=== PATIENT | female | born 1990 | race African-American/Black ===

== ENCOUNTER 2017-07-28 04:39 | Emergency (ER) | payer OTHER ==
[~2017-07-28] VITALS: Ht 160 cm; Wt 82.0 kg
[~2017-07-28 04:39] MED LIST: BACT800T5 PO; CEPH500C3 PO; ETON1IMP I-DERMAL; IBUP800T23 PO
[2017-07-28 04:47] VITALS: BP 122/67; PULSE 88; RESP 20; TEMP 98.6; O2SAT 98
[2017-07-28 05:02] VITALS: BP 122/67; PULSE 88; RESP 20; TEMP 98.6; O2SAT 98
[2017-07-28] MEDS ORDERED: IBUP-232 PO (05:38)
[2017-07-28] MEDS ORDERED: IBUPROFEN 600 MG TAB PO ONE (05:45)
--- NOTE | 2017-07-28 05:51 | PD ---
HPI Chief Complaint: Injury Time Seen by Provider: 04:56 Travel History International Travel<30 days: No Contact w/Intl Traveler<30days: No Traveled to known affect area: No History of Present Illness HPI The patient is a 26-year-old female that at approximately 9 PM yesterday she suffered a lateral patellar subluxation. She put it back into place but has persistent pain since. This is her first episode of patellar subluxation. She denies any other injury. She states there is no possibility of . [facility] Past Medical History Hypertension: Yes Tetanus Vaccination: Unknown Influenza Vaccination: No ?: Not LMP: 3 WEEKS AGO Past Surgical History Surgical History: No Previous Surgery Social History Alcohol Use: Yes (OCCASIONAL) Tobacco Use: No Substance Use: No Allergies-Medications (Allergen,Severity, Reaction): Coded Allergies: No Known Allergies (Unverified Adverse Reaction, Unknown, 07/28/17) Reported Meds & Prescriptions Reported Meds & Active Scripts Active Ibuprofen 600 Mg Tab 600 Mg PO TID Nexplanon Implant (Etonogestrel Implant) 68 Mg Imp 68 Mg I-DERMAL ONCE Review of Systems Except as stated in HPI: all other systems reviewed are Neg Physical Exam Narrative GENERAL: Well-nourished, well-developed patient in slight apparent distress with her right knee discomfort. Her vital signs are normal. SKIN: Focused skin assessment warm/dry. HEAD: Normocephalic. EYES: No scleral icterus. No injection or drainage. NECK: Supple, trachea midline. No JVD or lymphadenopathy. CARDIOVASCULAR: Regular rate and rhythm without murmurs, gallops, or rubs. RESPIRATORY: Breath sounds equal bilaterally. No accessory muscle use. GASTROINTESTINAL: Abdomen soft, non-tender, nondistended. MUSCULOSKELETAL: No cyanosis, or edema. There is barely perceptible swelling and considerable tenderness over the patella. The patellar apprehension test is positive. There is no subluxation at this time. Collaterals, drawer, Kendall all normal testing. BACK: Nontender without obvious deformity. No CVA tenderness. Data Data Last Documented VS Vital Signs Date Time Temp Pulse Resp B/P (MAP) Pulse Ox O2 Delivery O2 Flow Rate FiO2 07/28/17 05:05 Room Air 07/28/17 05:02 98.6 88 20 122/67 (85) 98 Orders Orders Knee, Complete (4vws) (07/28/17 04:56) Ibuprofen (Motrin) (07/28/17 05:45) Ed Discharge Order (07/28/17 05:51) MDM Medical Decision Making Medical Screen Exam Complete: Yes Emergency Medical Condition: Yes Medical Record Reviewed: Yes Interpretation(s) X-rays of the right knee show no fracture or subluxation. The x-rays do show a small joint effusion. Differential Diagnosis Pain from patellar subluxation, fracture knee, cartilage tear, ligamentous injury to knee Narrative Course The history is inconsistent with a cartilage tear of the knee. The history strongly suggest patellar subluxation and pain following this event. There is no evidence for ligamentous injury to the knee. X-rays show no fracture of the knee. Diagnosis Primary Impression: Lateral subluxation of right patella Additional Instructions: Stay off of the knee as best you can and let it rest. Take the Motrin regular, 1 tablet 3 times daily. Follow-up with an orthopedic doctor or your primary care physician next week. Med/Other Pt SpecificInfo: Prescription(s) given Scripts Ibuprofen (Ibuprofen) 600 Mg Tab 600 MG PO TID, #33 TAB 0 Refills Prov: Emmanuel Gray MD 07/28/17 Disposition: 01 DISCHARGE HOME Condition: Stable Emmanuel Gray MD Jul 28, 2017 05:51
--- NOTE | 2017-07-28 06:01 | RADRPT ---
EXAM DATE/TIME: 07/28/2017 05:01 [place] COMPARISON: No previous studies available for comparison. INDICATIONS : Right knee pain after knee feeling like it "popped" out of place. MEDICAL HISTORY : None. SURGICAL HISTORY : None. ENCOUNTER: Initial ACUITY: 1 day PAIN SCORE: 9/10 LOCATION: Right knee. FINDINGS: Four view examination of the right knee demonstrates no evidence of fracture or dislocation. Bony mi neralization is normal. The articular surfaces are intact. There is mild fullness in the suprapatell ar bursa region consistent with a small joint effusion. There is no joint body. CONCLUSION: 1. No acute fracture or malalignment. 2. Small joint effusion. Chuck Bañuelos MD on July 28, 2017 at 5:59 Board Certified Radiologist. This report was verified electronically.
== END 2017-07-28 06:17 | disposition home or self-care (01) ==
LOC: PHED 04:39
DX: S83.011A Lateral subluxation of right patella, initial encounter (principal); X58.XXXA Exposure to other specified factors, initial encounter
CPT/HCPCS: 73564; 99283